=== PATIENT | female | born 1990 | race Asian ===

== ENCOUNTER 2016-11-20 02:36 | Emergency (ER) | payer MEDICAID, OTHER ==
[2016-11-20] MEDS ORDERED: EPINEPHrine 0.3 MG/0.3 ML SYRINGE IM ONE (02:48)
[2016-11-20] MEDS ORDERED: FAMOTIDINE 20 MG/2 ML VIAL IVP STA (02:48)
[2016-11-20] MEDS ORDERED: diphenhydrAMINE INJ 50 MG/ML VIAL IVP STA (02:48)
[2016-11-20] MEDS ORDERED: methylPREDNISolone SUCCINATE 125 MG/2 ML VIAL IVP STA (02:48)
[2016-11-20] MEDS ORDERED: EPINEPHrine 1 MG/ML AMP ONE (02:52)
[2016-11-20] MEDS ORDERED: diphenhydrAMINE INJ 50 MG/ML VIAL ONE (02:52)
[2016-11-20] MEDS ORDERED: methylPREDNISolone SUCCINATE 125 MG/2 ML VIAL IVP ONE (02:53)
[2016-11-20] MEDS ORDERED: FAMOTIDINE 20 MG/2 ML VIAL ONE (02:53)
--- NOTE | 2016-11-20 03:31 | ED Physician Documentation ---
PD HPI SKIN - Stated complaint Stated Complaint: ALLERGIC REACTION - Chief complaint Chief Complaint: Allergic Rx - History obtained from History obtained from: Patient - History of Present Illness Timing - onset: Today Timing - details: Abrupt onset, Still present Location: Face, Chest, Back, RUE, LUE Quality / character: Itchy, Raised Improved by: Benadryl Associated symptoms: Facial swelling. No: Fever, Abd pain, N/V/D Contributing factors: Exposed to food Similar symptoms before: Work up / diagnostics, Treatment, Follow up Recently seen: Not recently seen - Additional information Additional information: Patient is a 26 year old female with multiple nut allergies who is presenting with an allergic reaction. Patient states that she tried eating pistachios tonight around 11. around one she woke up and was itching and wheezing. Patient took benadryl 25mg before coming to the emergency department. Upon initial evaluation in the emergency department patient stated that her wheezing had improved but she did have some facial swelling. Review of Systems Constitutional: denies: Fever, Chills Eyes: reports: Irritation. denies: Photophobia, Discharge Ears: denies: Ear pain, Drainage/discharge, Tinnitus/ringing Nose: reports: Rhinorrhea / runny nose, Congestion. denies: Sinus pressure / pain Throat: denies: Dental pain / toothache, Sore throat Cardiac: denies: Palpitations Respiratory: reports: Wheezing. 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: section - Present Medications Home Medications: Ambulatory Orders Medication Instructions Recorded Confirmed Implenon 03/02/14 11/20/14 Loratadine [Claritin] 10 mg PO DAILY 11/20/14 11/20/14 Ondansetron Odt [Zofran] 4 mg TL Q6H PRN #10 tablet 11/20/14 Pantoprazole [Protonix] 40 mg PO DAILY #30 tablet 11/20/14 Epinephrine [Epipen 2-Blaine] 0.3 mg IJ ONCE PRN #2 auto.injct 11/20/16 Prednisone 40 mg PO DAILY 5 Days 11/20/16 - Allergies Allergies/Adverse Reactions: Allergies Allergy/AdvReac Type Severity Reaction Status Date / Time bismuth subsalicylate Allergy Itching Verified 11/20/14 14:20 [From Pepto-Bismol] almond AdvReac Hives Verified 11/20/16 02:50 egg AdvReac Hives Verified 11/20/16 02:51 pecan nut AdvReac Hives Verified 11/20/16 02:49 pistachio nut AdvReac Hives Verified 11/20/16 02:50 walnut AdvReac Hives Verified 11/20/16 02:50 - Social History Does the pt smoke?: No Smoking Status: Never smoker Does the pt drink ETOH?: No Does the pt have substance abuse?: No - Immunizations Immunizations are current?: No - POLST Patient has POLST: No PD ED PE NORMAL - Vitals Vital signs reviewed: Yes - General General: Alert and oriented X 3, Well developed/nourished - HEENT HEENT: Atraumatic, PERRL, Moist mucous membranes, Pharynx benign - Neck Neck: Supple, no meningeal sign - Cardiac Cardiac: RRR, No murmur - Respiratory Respiratory: No respiratory distress, Clear bilaterally - Abdomen Abdomen: Soft, Non tender, Non distended - Extremities Extremities: No deformity - Neuro Neuro: Alert and oriented X 3, founder ceo & president 2-12 intact, No motor deficit, No sensory deficit, Normal speech - Psych Psych: Normal mood, Normal affect PD ED PE EXPANDED - General General: Other (uncomfortable ) - HEENT HEENT: Other (swelling of the lips, but no soft palate swelling) - Eyes Eyes: Injected conj/sclera - Respiratory Respiratory: No: Distress, Stridor, Accessory mm use, Wheezing - Derm Derm: Warm and dry, Urticaria (diffuse urticaria throughout patient's body, worsen on her back and chest) Results - Vitals Vitals: Vital Signs - 24 hr 11/20/16 11/20/16 11/20/16 02:44 03:18 03:32 Temperature 36.9 C Heart Rate 103 H 84 82 Respiratory 18 15 16 Rate Blood Pressure 139/88 H 117/66 O2 Saturation 96 99 100 11/20/16 03:44 Temperature Heart Rate 92 Respiratory 14 Rate Blood Pressure O2 Saturation 99 Oxygen O2 Source Room air PD MEDICAL DECISION MAKING - ED course Complexity details: re-evaluated patient, considered differential, d/w patient ED course: Patient was seen and examined at bedside. IV access was gained and patient was treated with solumedrol, benadryl pepcid and IM epinepherine. Patient responded well to the therapy. the rash improved and patient was comfortable. patient was observed in the emergency department until almost a complete resolution of her symptoms. patient required no further work up at this time. patient was given detailed discharge, and return instructions. Patient required no further work up and was stable for discharge with outpatient follow up. Departure - Departure Disposition: 01 Home, Self Care Clinical Impression: Allergic urticaria Condition: Good Instructions: ED Urticaria Follow-Up: primary,care provider [Other] Prescriptions: Epinephrine [Epipen 2-Blaine] 0.3 mg IJ ONCE PRN #2 auto.injct PRN Reason: Anaphylaxis Prednisone 40 mg PO DAILY 5 Days Comments: Your symptoms today are being caused by an allergic reaction. You should avoid all legumes/nuts in the future. You can take benadryl as needed for minor symptoms but should use the epinephrine and return to the emergency department for facial swelling, throat swelling, wheezing worsening shortness of breath. you should follow up with your pmd for a referral for an [employer] [facility] consultant to check for other allergies.
[2016-11-20 03:48] VITALS: BP 135/64
== END 2016-11-20 04:05 | disposition home or self-care (01) ==
LOC: ED 02:36
DX: L50.0 Allergic urticaria (principal); Z91.018 Allergy to other foods
CPT/HCPCS: 96372; 96374; 96375; 99284

== ENCOUNTER 2017-03-27 04:14 | Emergency (ER) | payer OTHER ==
--- NOTE | 2017-03-27 04:28 | ED Physician Documentation ---
PD HPI ABD PAIN - Stated complaint Stated Complaint: ABD PX - Chief complaint Chief Complaint: Abd Pain - History obtained from History obtained from: Patient - History of Present Illness Timing - onset: Today (about an hour ago, awoke with abrupt pain lower pelvic, midline to left. Had had some crmaping pains mildly yesterday.) Timing - duration: Hours (1) Timing - details: Abrupt onset, Still present (easing some) Quality: Aching, Sharp, Pain Location: Suprapubic, LLQ Radiation: No: Left flank Improved by: Position (lying with knees up) Worsened by: Moving, Palpation Associated symptoms: Nausea. No: Fever, Diarrhea, Dysuria, Vaginal bleeding, Vaginal dc Similar symptoms before: Diagnosis (ruptured ovarian cyst couple times in the past) Recently seen: Not recently seen Review of Systems Constitutional: denies: Fever Nose: denies: Rhinorrhea / runny nose, Congestion Throat: denies: Sore throat Respiratory: denies: Dyspnea, Cough GI: reports: Abdominal Pain, Nausea. 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 : None, Other (no history of stones) HEENT: None Psych: None Musculoskeletal: None Derm: None - Past Surgical History Past Surgical History: Yes /CELEBRITY MANAGER: section - Present Medications Home Medications: Ambulatory Orders Medication Instructions Recorded Confirmed HYDROcod/ACETAM 5/325 [[place] 5/325] 1 tab PO Q6H PRN #15 tablet 03/27/17 Naproxen 375 mg PO BID #15 tablet 03/27/17 Ondansetron Odt [Zofran] 4 mg TL Q6H PRN #15 tablet 03/27/17 - Allergies Allergies/Adverse Reactions: Allergies Allergy/AdvReac Type Severity Reaction Status Date / Time bismuth subsalicylate Allergy Itching Verified 03/27/17 04:20 [From Pepto-Bismol] almond AdvReac Hives Verified 03/27/17 04:20 egg AdvReac Hives Verified 03/27/17 04:20 pecan nut AdvReac Hives Verified 03/27/17 04:20 pistachio nut AdvReac Hives Verified 03/27/17 04:20 walnut AdvReac Hives Verified 03/27/17 04:20 - Social History Does the pt smoke?: No Smoking Status: Never smoker Does the pt drink ETOH?: No Does the pt have substance abuse?: No - Immunizations Immunizations are current?: No - POLST Patient has POLST: No PD ED PE NORMAL - Vitals Vital signs reviewed: Yes - General General: Alert and oriented X 3, Well developed/nourished, Other (appears in pain) - HEENT HEENT: Pharynx benign - Neck Neck: Supple, no meningeal sign, No adenopathy - Cardiac Cardiac: RRR, No murmur - Respiratory Respiratory: Clear bilaterally - Abdomen Abdomen: Normal bowel sounds, Soft, Non distended, No organomegaly, Other ( tender lower abd middle mainly and to LLQ, some in right. No percussion nor rebound. Bedside U/S showed mild free fluid in pelvis. None noted in upper abd. ) - Female Female : Deferred - Rectal Rectal: Deferred - Back Back: No CVA TTP - Derm Derm: Normal color, Warm and dry - Extremities Extremities: No deformity, No tenderness to palpate, No edema, No calf tenderness / cord - Neuro Neuro: Alert and oriented X 3, No motor deficit, Normal speech Results - Vitals Vitals: Vital Signs - 24 hr 03/27/17 03/27/17 03/27/17 04:17 05:30 06:23 Temperature 36.4 C L Heart Rate 89 64 66 Respiratory 18 16 14 Rate Blood Pressure 110/67 102/59 L 105/60 O2 Saturation 97 100 100 Oxygen O2 Source Room air - Labs Labs: Laboratory Tests 03/27/17 03/27/17 04:50 05:40 WBC 7.5 RBC 4.35 Hgb 12.4 Hct 36.2 L MCV 83.3 MCH 28.5 MCHC 34.2 RDW 13.1 Plt Count 229 MPV 9.4 Neut # 4.6 Lymph # 2.0 [place] # 0.6 Eos # 0.2 Baso # 0.0 Absolute Nucleated RBC 0.00 Nucleated RBCs 0.0 Urine Color YELLOW Urine Clarity CLEAR Urine pH 5.5 Ur Specific [place] >=1.030 H Urine Protein NEGATIVE Urine Glucose (UA) NEGATIVE Urine Ketones NEGATIVE Urine Occult Blood NEGATIVE Urine Nitrite NEGATIVE Urine Bilirubin NEGATIVE Urine Urobilinogen 0.2 (NORMAL) Ur Leukocyte Esterase NEGATIVE Ur Microscopic Review NOT INDICATED Urine Culture Comments NOT INDICATED Urine HCG, Qual NEGATIVE PD MEDICAL DECISION MAKING - ED course Complexity details: reviewed results, considered differential (normal WBC and urine, not . Middle of night so just did bedside U/S and saw trace pelvic free fluid. Pain improved with meds. Reasonable to assume ovarian cyst/ likely ruptured. ), d/w patient Departure - Departure Disposition: 01 Home, Self Care Clinical Impression: Ruptured ovarian cyst Abdominal pain Qualifiers: Abdominal location: lower abdomen, unspecified Qualified Code(s): R10.30 - Lower abdominal pain, unspecified Condition: Stable Record reviewed to determine appropriate education?: Yes Instructions: ED Abdominal Pain Unkn Cause, ED Cyst Ovarian Follow-Up: IGNACIO Gomez [Provider Group] Prescriptions: Naproxen 375 mg PO BID #15 tablet HYDROcod/ACETAM 5/325 [[place] 5/325] 1 tab PO Q6H PRN #15 tablet PRN Reason: Pain Ondansetron Odt [Zofran] 4 mg TL Q6H PRN #15 tablet PRN Reason: Nausea / Vomiting Comments: Your urine looks normal. Your blood count is okay. At this point we would assume likely ruptured cyst. I would presume this would taper down improve over the next day or 2. Use naproxen or ibuprofen twice daily for 5-7 days. Ondansetron if needed for nausea. Add Tylenol or hydrocodone if needed for pain. Recheck if not improving over the next couple of days or if you have worsening pain, fever, other problems such as bloody stool or trouble urinating etc. Discharge Date/Time: 03/27/17 06:24
[2017-03-27] MEDS ORDERED: HYDROmorphone 1 MG/ML CARPUJECT IVP STA (04:38)
[2017-03-27] MEDS ORDERED: KETOROLAC 60 MG/2 ML VIAL IVP STA (04:38)
[2017-03-27] MEDS ORDERED: SODIUM CHLORIDE 0.9% 1,000 ML IV ONE (04:40)
[2017-03-27] MEDS ORDERED: ONDANSETRON 4 MG/2 ML VIAL IVP STA (04:40)
[2017-03-27] MEDS ORDERED: KETOROLAC 30 MG/ML VIAL ONE (04:46)
[2017-03-27] MEDS ORDERED: ONDANSETRON 4 MG/2 ML VIAL ONE (04:46)
[2017-03-27] MEDS ORDERED: HYDROmorphone 1 MG/ML CARPUJECT ONE (04:46)
[2017-03-27] MEDS ORDERED: SODIUM CHLORIDE FLUSH 0.9% 10 ML SYRINGE IVP ONE (04:48)
[2017-03-27 05:02] LABS: BASOPHILS % (AUTO) 0.5 %; EOSINOPHILS # (AUTO) 0.2 10^3/uL (0.0-0.7); EOSINOPHILS % (AUTO) 2.7 %; HCT - HEMATOCRIT 36.2 % (37.0-47.0); HGB - HEMOGLOBIN 12.4 g/dL (12.0-16.0); LYMPHOCYTES % (AUTO) 27.1 %; MEAN CORPUSCULAR HEMOGLOBIN 28.5 pg (27.0-31.0); MEAN CORPUSCULAR HGB CONC 34.2 g/dL (32.0-36.0); MEAN CORPUSCULAR VOLUME 83.3 fL (81.0-99.0); MEAN PLATELET VOLUME 9.4 fL (7.9-10.8); MONOCYTES # (AUTO) 0.6 10^3/uL (0.0-1.0); MONOCYTES % (AUTO) 7.9 %; NEUTROPHILS # (AUTO) 4.6 10^3/uL (1.5-6.6); NEUTROPHILS % (AUTO) 61.8 %; RED BLOOD COUNT 4.35 10^6/uL (4.20-5.40); RED CELL DISTRIBUTION WIDTH 13.1 % (12.0-15.0); UNCORRECTED WHITE BLOOD COUNT 7.5 x10^3/uL; WHITE BLOOD COUNT 7.5 x10^3/uL (4.8-10.8)
[2017-03-27 05:47] LABS: BILIRUBIN,URINE NEGATIVE (NEGATIVE); PH,URINE 5.5 PH (5.0-7.5)
[2017-03-27 06:01] LABS: HCG UR QUAL NEGATIVE; UA CHARGE (STRIP ONLY) YES; UR CULTURE IF IND NOT INDICATED
[2017-03-27] MEDS ORDERED: HYDROcod/ACET 5/325 Prepack 6 PO ONE ×2 (06:12→06:21)
[2017-03-27 06:24] VITALS: BP 105/60
== END 2017-03-27 06:24 | disposition home or self-care (01) ==
LOC: ED 04:14
DX: N83.299 Other ovarian cyst, unspecified side (principal); R10.32 Left lower quadrant pain
CPT/HCPCS: 36415; 81003; 81025; 85025; 99284; J1170; 81001; 87086

== ENCOUNTER 2017-06-12 14:16 | Emergency (ER) | payer OTHER ==
--- NOTE | 2017-06-12 14:32 | ED Physician Documentation ---
PD HPI FEMALE - Stated complaint Stated Complaint: FEMALE /13 WKS - Chief complaint Chief Complaint: UTI - History obtained from History obtained from: Patient - History of Present Illness Timing - onset: Other ( at 13 weeks gestation with 2 days of urinary frequency and burning and hematuria without flank pain, fevers.) Review of Systems Constitutional: denies: Fever, Chills GI: denies: Abdominal Pain, Nausea, Vomiting, Diarrhea : reports: Dysuria, Frequency, Hematuria. 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: section - Present Medications Home Medications: Ambulatory Orders Medication Instructions Recorded Confirmed HYDROcod/ACETAM 5/325 [[place] 5/325] 1 tab PO Q6H PRN #15 tablet 03/27/17 Naproxen 375 mg PO BID #15 tablet 03/27/17 06/12/17 Ondansetron Odt [Zofran] 4 mg TL Q6H PRN #15 tablet 03/27/17 06/12/17 Nitrofurantoin Monohyd/M-Cryst 1 tab PO BID 5 Days capsule 06/12/17 [Macrobid 100 mg Capsule] - Allergies Allergies/Adverse Reactions: Allergies Allergy/AdvReac Type Severity Reaction Status Date / Time bismuth subsalicylate Allergy Itching Verified 06/12/17 14:29 [From Pepto-Bismol] almond AdvReac Hives Verified 03/27/17 04:20 egg AdvReac Hives Verified 03/27/17 04:20 pecan nut AdvReac Hives Verified 03/27/17 04:20 pistachio nut AdvReac Hives Verified 03/27/17 04:20 walnut AdvReac Hives Verified 03/27/17 04:20 - Social History Does the pt smoke?: No Smoking Status: Never smoker Does the pt drink ETOH?: No Does the pt have substance abuse?: No - Immunizations Immunizations are current?: No - POLST Patient has POLST: No PD ED PE NORMAL - Vitals Vital signs reviewed: Yes - General General: Alert and oriented X 3, No acute distress - Abdomen Abdomen: Normal bowel sounds, Soft, Non tender - Female Female : Other (Pelvic ultrasound, transabdominal shows single live intrauterine with heart rate of 150 and positive motion) - Back Back: No CVA TTP - Neuro Neuro: Alert and oriented X 3, Normal speech Results - Vitals Vitals: Vital Signs - 24 hr 06/12/17 14:26 Temperature 36.0 C L Heart Rate 85 Respiratory 18 Rate Blood Pressure 137/90 H O2 Saturation 100 Oxygen O2 Source Room air - Labs Labs: Laboratory Tests 06/12/17 14:30 Urine Color YELLOW Urine Clarity HAZY Urine pH 6.0 Ur Specific [place] 1.010 Urine Protein TRACE Urine Glucose (UA) NEGATIVE Urine Ketones NEGATIVE Urine Occult Blood LARGE H Urine Nitrite NEGATIVE Urine Bilirubin NEGATIVE Urine Urobilinogen 0.2 (NORMAL) Ur Leukocyte Esterase TRACE H Ur Microscopic Review INDICATED Urine Culture Comments Not Reportable Departure - Departure Disposition: 01 Home, Self Care Clinical Impression: Cystitis Condition: Good Record reviewed to determine appropriate education?: Yes Instructions: ED UTI Cystitis Female Prescriptions: Nitrofurantoin Monohyd/M-Cryst [Macrobid 100 mg Capsule] 1 tab PO BID 5 Days capsule Comments: We will culture your urine, the results should be done in 48-72 hours. If an antibiotic change is necessary we will call you. Return if worse in the meantime, especially if you develop increasing flank pain, fevers, or cannot keep down the medication. Your blood pressure was elevated today on check into the emergency department. This does not mean that you have hypertension, it is a common phenomenon to come to the emergency department and have elevated blood pressure. I recommend that you see your primary care physician within the week to have it rechecked when you are feeling better.
[2017-06-12 14:55] LABS: BILIRUBIN,URINE NEGATIVE (NEGATIVE)
[2017-06-12 15:05] LABS: UA w/ MICROSCOPIC CHARGE YES
[2017-06-12] MEDS ORDERED: NITROFURANTOIN MACRO 100 MG CAPSULE PO STA (15:05)
[2017-06-12 15:08] LABS: WBC,URINE >25 /HPF (0-5)
[2017-06-12 15:10] LABS: UR CULTURE IF IND INDICATED
[2017-06-12 15:17] VITALS: BP 134/80
[2017-06-12] MEDS ORDERED: NITROFURANTOIN MACRO 100 MG CAPSULE PO ONE (15:19)
== END 2017-06-12 15:17 | disposition home or self-care (01) ==
LOC: ED 14:16
DX: O23.11 Infections of bladder in pregnancy, first trimester (principal); Z3A.13 13 weeks gestation of pregnancy; O26.891 Other specified pregnancy related conditions, first trimester; R03.0 Elevated blood-pressure reading, without diagnosis of hypertension
CPT/HCPCS: 81001; 87086; 99283; A9270; 81003

== ENCOUNTER 2020-02-26 19:15 | Emergency (ER) | payer OTHER ==
--- NOTE | 2020-02-26 19:41 | ED Physician Documentation ---
History of Present Illness - Stated complaint Stated Complaint: ABD PX - Chief complaint Chief Complaint: Abd Pain - History obtained from History obtained from: Patient - Additonal information Additional information: 29-year-old female presents to the emergency department for evaluation of acute onset epigastric pain. She reports that at 6 this evening she had very sudden sharp nonradiating epigastric pain that was very intense. It has ultimately gone away after about 15 to 20 minutes. She had no nausea or vomiting This young lady was seen here in early February with right upper quadrant pain. Ultrasound did reveal a 6 mm obstructing stone within the common bile duct. She was referred to [facility] for an ERCP. She reports that the ERCP was completed and she had a post operative course that was complicated by pancreatitis. However since being discharged from the hospital she has done well and has had no abdominal pain. In fact she did see the surgeon in follow-up this morning with no acute findings. At this time patient is free of abdominal pain but she is concerned that the brief episodic pain may have been a return of her gallstones Review of Systems Constitutional: denies: Fever, Chills Eyes: denies: Loss of vision, Decreased vision Nose: denies: Rhinorrhea / runny nose Throat: denies: Dental pain / toothache, Oral lesions / sores, Sore throat Cardiac: denies: Chest pain / pressure, Palpitations Respiratory: denies: Dyspnea, Cough, Hemoptysis, Wheezing GI: reports: Abdominal Pain. 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 : None, Other HEENT: None Psych: None Musculoskeletal: None Derm: None - Past Surgical History Past Surgical History: Yes /FILM 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: section - Present Medications Home Medications: Ambulatory Orders Medication Instructions Recorded Confirmed No Known Home Medications 02/08/20 02/08/20 - Allergies Allergies/Adverse Reactions: Allergies Allergy/AdvReac Type Severity Reaction Status Date / Time bismuth subsalicylate Allergy Itching Verified 02/08/20 15:39 [From Pepto-Bismol] almond AdvReac Hives Verified 02/08/20 15:39 egg AdvReac Hives Verified 02/08/20 15:39 pecan nut AdvReac Hives Verified 02/08/20 15:39 pistachio nut AdvReac Hives Verified 02/08/20 15:39 walnut AdvReac Hives Verified 02/08/20 15:39 - Social History Does the pt smoke?: No Smoking Status: Never smoker Does the pt drink ETOH?: No Does the pt have substance abuse?: No - Immunizations Immunizations are current?: No - POLST Patient has POLST: No PD ED PE NORMAL - General General: Alert and oriented X 3, No acute distress, Well developed/nourished - HEENT HEENT: PERRL, EOMI - Neck Neck: No adenopathy - Cardiac Cardiac: RRR, No murmur - Respiratory Respiratory: No respiratory distress - Abdomen Abdomen: Normal bowel sounds, Soft, Non tender, Non distended - Back Back: No CVA TTP, No spinal TTP - Derm Derm: Normal color, No rash - Extremities Extremities: No deformity, No tenderness to palpate Results - Vitals Vitals: Vital Signs - 24 hr 02/26/20 19:19 Temperature 36.7 C Heart Rate 69 Respiratory 16 Rate Blood Pressure 120/76 O2 Saturation 99 Oxygen O2 Source Room air - Labs Labs: Laboratory Tests 02/26/20 02/26/20 02/26/20 19:31 20:05 20:05 WBC 7.8 RBC 4.06 L Hgb 11.9 L Hct 36.4 L MCV 89.7 MCH 29.3 MCHC 32.7 RDW 12.2 Plt Count 564 H MPV 9.7 Neut # (Auto) 5.4 Lymph # (Auto) 1.8 [place] # (Auto) 0.4 Eos # (Auto) 0.1 Baso # (Auto) 0.1 Absolute Nucleated RBC 0.00 Nucleated RBC % 0.0 Sodium 138 Potassium 3.5 Chloride 100 L Carbon Dioxide 28 Anion Gap 10.0 BUN 11 Creatinine 0.7 Estimated GFR (MDRD) 100 Glucose 93 Calcium 9.5 Total Bilirubin 0.6 AST 81 H ALT 85 H Alkaline Phosphatase 136 H Total Protein 8.6 H Albumin 4.1 Globulin 4.5 H Albumin/Globulin Ratio 0.9 L Lipase 72 H Urine Color YELLOW Urine Clarity CLEAR Urine pH 5.5 Ur Specific [place] 1.025 Urine Protein NEGATIVE Urine Glucose (UA) NEGATIVE Urine Ketones NEGATIVE Urine Occult Blood NEGATIVE Urine Nitrite NEGATIVE Urine Bilirubin NEGATIVE Urine Urobilinogen 0.2 (NORMAL) Ur Leukocyte Esterase NEGATIVE Ur Microscopic Review NOT INDICATED Urine Culture Comments NOT INDICATED Urine HCG, Qual NEGATIVE 02/26/20 20:05 WBC RBC Hgb Hct MCV MCH MCHC RDW Plt Count MPV Neut # (Auto) Lymph # (Auto) [place] # (Auto) Eos # (Auto) Baso # (Auto) Absolute Nucleated RBC Nucleated RBC % Sodium Potassium Chloride Carbon Dioxide Anion Gap BUN Creatinine Estimated GFR (MDRD) Glucose Calcium Total Bilirubin AST ALT Alkaline Phosphatase Total Protein Albumin Globulin Albumin/Globulin Ratio Lipase 70 H Urine Color Urine Clarity Urine pH Ur Specific [place] Urine Protein Urine Glucose (UA) Urine Ketones Urine Occult Blood Urine Nitrite Urine Bilirubin Urine Urobilinogen Ur Leukocyte Esterase Ur Microscopic Review Urine Culture Comments Urine HCG, Qual - Rads (name of study) abd US Radiology: Final report received (Gallbladder is contracted around multiple shadowing gallstones. No secondary signs of acute cholecystitis. The common bile duct measures 7 mm in diameter on the 6 AM, mildly decreased in size compared to the ultrasound on 02/08/2020) PD MEDICAL DECISION MAKING - ED course Complexity details: reviewed results, re-evaluated patient, considered differential, d/w patient, d/w marine consultant (Dr. Elmore) ED course: 29-year-old female presents to the emergency department for a brief episode of severe sharp upper epigastric pain. She does have a recent history of an obstructing gallstone requiring ERCP at [facility]. Postop course was complicated by pancreatitis. Today her labs are evaluated and full. She has no leukocytosis. There is mild transaminates but her bilirubin is normal. An abdominal ultrasound was completed and it does show a contracted gallbladder with multiple shadowing stones. However there were no secondary signs of acute cholecystitis. The CBD measured at 7 mm, mildly decreased compared to recent ultrasound. I discussed this case with on-call surgeon Dr. Elmore. At this time as she is pain-free and taking into account her ultrasound readings he does not feel that she warrants admission or surgical evaluation tonight. He would recommend very prompt outpatient follow-up because she will most certainly need her gallbladder removed. I did discuss the ultrasound and laboratory findings with the patient. She reports to me that she does have a follow-up appointment with surgery at [facility] surgical services on March 13 to discuss gallbladder removal. I have expressed to the patient that if she has worsening pain, any fevers, uncontrolled vomiting she is to return immediately to the emergency department for further evaluation Departure - Departure Disposition: Home, Self Care Clinical Impression: Gallstones without obstruction of gallbladder Qualifiers: Cholelithiasis location: gallbladder Cholecystitis presence: without cholecystitis Qualified Code(s): K80.20 - Calculus of gallbladder without cholecystitis without obstruction Condition: Stable Record reviewed to determine appropriate education?: Yes Instructions: Gallstones Dc Follow-Up: Mukul Elmore MD [Provider Admit Priv/Credential] - Comments: The ultrasound today does show that you have multiple gallstones but your stones are not obstructing the common bile duct or the gallbladder. In the long-term your gallbladder will need to be removed. Please continue to follow-up with your surgical appointment already scheduled. I have also referred you to [facility] general surgical services for follow-up. Please see whichever service is able to see you sooner. If at any point your pain returns, you have fevers, uncontrolled vomiting please return to the emergency department for a second evaluation
[2020-02-26 20:09] LABS: BILIRUBIN,URINE NEGATIVE (NEGATIVE); GLUCOSE, URINE (UA) NEGATIVE (NEGATIVE); KETONES,URINE (UA) NEGATIVE (NEGATIVE); LEUKOCYTE ESTERASE, URINE NEGATIVE (NEGATIVE); NITRITE,URINE NEGATIVE (NEGATIVE); OCCULT BLOOD,URINE NEGATIVE (NEGATIVE); PH,URINE 5.5 PH (5.0-7.5); PROTEIN,URINE NEGATIVE (NEGATIVE); UROBILINOGEN,URINE 0.2 (NORMAL) E.U./dL (NORMAL)
[2020-02-26 20:10] LABS: CLARITY,URINE CLEAR (CLEAR); HCG UR QUAL NEGATIVE
[2020-02-26 20:16] LABS: BASOPHILS # (AUTO) 0.1 10^3/uL (0.0-0.1); BASOPHILS % (AUTO) 0.6 %; EOSINOPHILS # (AUTO) 0.1 10^3/uL (0.0-0.7); EOSINOPHILS % (AUTO) 1.7 %; HGB - HEMOGLOBIN 11.9 g/dL (12.0-16.0); LYMPHOCYTES # (AUTO) 1.8 10^3/uL (1.5-3.5); LYMPHOCYTES % (AUTO) 23.5 %; MEAN CORPUSCULAR HEMOGLOBIN 29.3 pg (27.0-31.0); MEAN CORPUSCULAR HGB CONC 32.7 g/dL (32.0-36.0); MEAN CORPUSCULAR VOLUME 89.7 fL (81.0-99.0); MEAN PLATELET VOLUME 9.7 fL (7.9-10.8); MONOCYTES # (AUTO) 0.4 10^3/uL (0.0-1.0); MONOCYTES % (AUTO) 5.2 %; NEUTROPHILS # (AUTO) 5.4 10^3/uL (1.5-6.6); NEUTROPHILS % (AUTO) 68.4 %; PLT - PLATELET COUNT 564 10^3/uL (130-450); RED BLOOD COUNT 4.06 10^6/uL (4.20-5.40); RED CELL DISTRIBUTION WIDTH 12.2 % (12.0-15.0); WHITE BLOOD COUNT 7.8 x10^3/uL (4.8-10.8)
[2020-02-26 20:29] LABS: ALBUMIN 4.1 g/dL (3.2-5.5); ALBUMIN/GLOBULIN RATIO 0.9 (1.0-2.2); BILIRUBIN,TOTAL 0.6 mg/dL (0.2-1.0); CALCIUM 9.5 mg/dL (8.5-10.3); CREATININE 0.7 mg/dL (0.4-1.0); TOTAL PROTEIN 8.6 g/dL (6.7-8.2)
--- NOTE | 2020-02-26 21:24 | Ultrasound Report ---
PROCEDURE: Abdomen Limited INDICATIONS: abdominal pain; recent ERCP TECHNIQUE: Real-time scanning was performed of the abdominal and retroperitoneal organs, with image documentatio n. Color and pulse Doppler interrogation was also performed of the hepatic and splenic vessels, or o f the lesion of interest. COMPARISON: Abdominal ultrasound dated 02/08/2020. FINDINGS: Liver: Liver is normal in size and mildly increased in echogenicity. Gallbladder: The gallbladder is contracted around shadowing gallstones. Apparent gallbladder wall th ickening is likely related to contraction. Biliary ducts: No intrahepatic biliary ductal dilatation. Extrahepatic bile duct is 7 mm in caliber . Normal biliary caliber is 6-7 mm or less, or 10 mm or less post-cholecystectomy. Pancreas: Visualized portions of the pancreas appear normal. Kidneys: The right kidney is normal in size and echotexture. Right kidney measures 10.9 cm long. No hydronephrosis or nephrolithiasis. No solid renal masses. Aorta: Visualized abdominal aorta is normal in caliber at less than 3 cm. IVC: Intrahepatic inferior vena cava is patent. Miscellaneous: No free abdominal fluid. IMPRESSION: Gallbladder is contracted around multiple shadowing gallstones. No secondary signs of acute cholecyst itis. The common bile duct measures 7 mm in diameter on this exam, mildly decreased in size compared to the ultrasound from 02/08/2020. Reviewed by: Nitin Coleman MD on 02/26/2020 9:23 PM PDT Approved by: Nitin Coleman MD on 02/26/2020 9:23 PM PDT Station ID: [id number]
[2020-02-26 22:12] VITALS: BP 130/92
== END 2020-02-26 22:12 | disposition home or self-care (01) ==
LOC: ED 19:15
DX: K80.20 Calculus of gallbladder without cholecystitis without obstruction (principal)
CPT/HCPCS: 36415; 76705; 80053; 81001; 81003; 81025; 83690; 85025; 87086; 99284